=== PATIENT | male | born 1975 | race Caucasian/White ===

== ENCOUNTER 2022-06-10 09:03 | Outpatient (RCR) | payer OTHER, SELFPAY | END 2022-10-03 23:59 | disposition home or self-care (01) | LOC: CCIC 09:03 | PROVIDERS: PCP Family Medicine; Visit Provider Radiology Radiation Oncology | DX: C34.12 Malignant neoplasm of upper lobe, left bronchus or lung (principal) | CPT/HCPCS: 99211 ==